=== PATIENT | female | born 1950 | race Caucasian/White ===

== ENCOUNTER 2019-12-14 08:00 | Outpatient (CLI) | payer MEDICARE, BC ==
[2019-12-14] MEDS ORDERED: LIPITOR20 MG PO (09:44)
[2019-12-14] MEDS ORDERED: LEVOTHYROXINE75 MCG PO (09:44)
[2019-12-14] MEDS ORDERED: MIRAPEX0.25 MG PO (09:45)
[2019-12-14] MEDS ORDERED: RESTASIS (09:46)
[2019-12-14 10:33] LABS: HEMATOCRIT 39.6 % (36.0-48.0); HEMOGLOBIN 13.2 g/dL (12-16); MCH 32.1 pg (26.0-34.0); MCHC 33.3 g/dL (31.0-37.0); MCV 96.4 fL (80.0-100.0); MEAN PLATELET VOLUME 9.9 fL (7.4-10.4); RBC 4.11 10x6/uL (4.00-5.40); RDW 12.9 % (11.5-14.5); WBC 7.3 10x3/uL (4.8-10.8)
== END 2019-12-14 08:01 | disposition home or self-care (01) ==
LOC: D.OPS 08:00 → EDSTATUS 12-15 13:30 → D.PAN 12-15 13:30 → D.OPS 12-15 13:45
PROVIDERS: Anesthesiology; ATTEND Podiatrist
DX: M20.12 Hallux valgus (acquired), left foot (principal)